=== PATIENT | female | born 1975 | race Caucasian/White ===

== ENCOUNTER 2019-07-17 07:46 | Emergency (ER) | payer SELFPAY ==
[~2019-07-17] VITALS: Ht 152.4 cm; Wt 72.6 kg
[2019-07-17 07:49] VITALS: Ht 152.4 cm; Wt 72.6 kg
[2019-07-17 10:05] VITALS: BP 128/78
== END 2019-07-17 10:10 | disposition left against medical advice (07) ==
LOC: ED 07:46
DX: Z53.21 Procedure and treatment not carried out due to patient leaving prior to being seen by health care provider (principal)